=== PATIENT | male | born 1935 | race Caucasian/White ===

== ENCOUNTER 2023-10-26 14:05 | Emergency (ER) | payer MEDICARE, SELFPAY ==
[2023-10-26 14:12] VITALS: BP 141/74; PULSE 74; TEMP 37; O2SAT 95; BMI 32.8
--- NOTE | 2023-10-26 14:21 | US_ITS ---
The [address] [address] Patient Name: RK HILL MRN: [id number] date: 1935 Sex: M Assigned Patient Location: ED.MAIN Current Patient Location: ER Accession/Order Number: [id number] Exam Date: 10/26/2023 15:20 Report Date: 10/26/2023 16:17 At the request of: KAYKAY REDD Procedure: US right upper quadrant EXAM: US right upper quadrant HISTORY: RUQpain COMPARISON: None. TECHNIQUE: Grayscale, color and Doppler FINDINGS: The liver is prominent in size measuring 20.8 cm. Normal liver contour. Diffuse increase in hepatic echotexture. Hepatopedal flow in the main portal vein with a velocity 44 cm/s. The gallbladder is normal in size. The gallbladder wall measures 2.7 mm, normal. Extensive echogenic material within the gallbladder lumen with acoustic shadowing likely representing a combination of cholelithiasis and gallbladder sludge. The common bile duct measures 3.6 mm, normal. Negative sonographic Gutierrez sign The pancreas is poorly visualized due to bowel gas The right kidney measures 11.5 cm in length. The cortex measures 2.4 mm. No solid mass or hydronephrosis US/US right upper quadrant IMPRESSION: Echogenic liver suggesting hepatic steatosis Extensive cholelithiasis and gallbladder sludge without evidence of acute cholecystitis. Electronically authenticated by: ISAC BERMAN Date: 10/26/2023 16:17
--- NOTE | 2023-10-26 14:22 | XR_ITS ---
The [address] [address] Patient Name: RK HILL MRN: [id number] date: 1935 Sex: M Assigned Patient Location: ER Current Patient Location: ER Accession/Order Number: [id number] Exam Date: 10/26/2023 14:57 Report Date: 10/26/2023 15:12 At the request of: KAYKAY REDD Procedure: XR chest 2V EXAMINATION: XR chest 2V HISTORY: R lower rib pain COMPARISON: 09/15/2012 TECHNIQUE: PA and lateral FINDINGS: LUNGS: No significant pulmonary parenchymal abnormalities. VASCULATURE: No increased pulmonary vasculature. PLEURA: No pneumothorax, effusion, or pleural thickening. CARDIAC: No cardiomegaly or cardiac silhouette abnormality. MEDIASTINUM: No visible mass or adenopathy. BONES: Mild degenerative disc disease and spondylosis without visible acute abnormalities. Degenerative spondylosis OTHER: Negative. XR/XR chest 2V IMPRESSION: No acute pulmonary process Electronically authenticated by: ISAC BERMAN Date: 10/26/2023 15:12
--- NOTE | 2023-10-26 14:23 | ECG_ITS ---
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
--- NOTE | 2023-10-26 14:26 | ED.ABDPAIN1 ---
HPI - Abdominal Pain General Chief Complaint: Abdominal Pain Stated Complaint: RIB PAIN Time Seen by Provider: 10/26/23 14:07 Source: patient Mode of arrival: walk-in Limitations: no limitations History of Present Illness HPI narrative: Patient presents ED complaining of right upper quadrant abdominal pain and right lower rib pain. He said it started kind of suddenly yesterday after eating some fruit. He thinks he has gallstones but they have never been a problem but he is not exactly sure. He does still have his gallbladder. He has an extensive heart history and history of aortic aneurysm repair. He denies chest pain but is unsure if it is the ribs hurting him on the right lower ribs or the right upper quadrant abdominal area hurting him. He does not remember doing anything strenuous like lifting twisting or pulling anything. He denies any trauma to the area. No shortness of breath no skin rash no other complaints Related Data Home Medications ?Medication ?Instructions ?Recorded ?Confirmed aspirin 81 mg chewable tablet 81 mg PO DAILY 10/26/23 10/26/23 atorvastatin 20 mg tablet 20 mg PO DAILY 10/26/23 10/26/23 metoprolol succinate 25 mg 25 mg PO Q24H 10/26/23 10/26/23 tablet,extended release 24 hr tamsulosin 0.4 mg capsule 0.4 mg PO Q24H 10/26/23 10/26/23 Allergies Allergy/AdvReac Type Severity Reaction Status Date / Time meperidine [From Demerol] Allergy Severe Verified 10/26/23 14:12 Review of Systems ROS Status of ROS 10 or more systems reviewed and unremarkable except as noted in history and below Exam Narrative Exam Narrative: Time Seen: [] Vital Signs: [Per nurse's notes.] General: [Alert] Skin: [Warm, dry, no rash.] Head: [Normocephalic, atraumatic.] Neck: [Supple, trachea midline.] Eye: [Pupils are equal, round and reactive to light, extraocular movements are intact, normal conjunctiva.] Ears, nose, mouth and throat: oral mucosa moist. Cardiovascular: [Regular rate and rhythm, no murmur.] Respiratory: [Lungs are clear to auscultation, respirations are non-labored, breath sounds are equal.] Chest wall: [Mild right lower ribtenderness, no deformity.]No rash Gastrointestinal: [Soft, Mild right upper quadrant tenderness, non distended, normal bowel sounds.] MSK: 5 out of 5 muscle strength x 4 extremities no calf pain or edema Lymphatics: [No lymphadenopathy.] Psychiatric: [Cooperative, appropriate mood & affect.] Neurological: [Alert and oriented to person, place, time, and situation, no focal neurological deficit observed.] Constitutional Vital Signs, click to edit/add: Last Vital Signs Temp 98.6 F 10/26/23 14:12 Pulse 59 L 10/26/23 16:32 Resp 18 10/26/23 16:32 BP 106/54 10/26/23 16:32 Pulse Ox 94 L 10/26/23 16:32 O2 Del Method Room Air 10/26/23 16:32 Course Vital Signs Vital signs: Vital Signs Temperature 98.6 F 10/26/23 14:12 Pulse Rate 74 10/26/23 14:12 Respiratory Rate 18 10/26/23 14:12 Blood Pressure 141/74 10/26/23 14:12 Pulse Oximetry 95 10/26/23 14:12 Temperature 98.6 F 10/26/23 14:12 Pulse Rate 59 L 10/26/23 16:32 Respiratory Rate 18 10/26/23 16:32 Blood Pressure 106/54 10/26/23 16:32 Pulse Oximetry 94 L 10/26/23 16:32 Oxygen Delivery Method Room Air 10/26/23 16:32 MDM - Abdominal Pain MDM Narrative Medical decision making narrative: Patient's labs show a very slightly elevated white blood cell count and T. bili level. Ultrasound shows cholelithiasis and gallbladder sludge but no acute cholecystitis. Common bile duct is normal at 3.6 mm. I spoke to Dr. Badillo who said a conservative management would be best for this patient given his extensive cardiac history at this time before considering surgery. Follow-up with family doctor, return to ED if worsening pain vomiting fevers or any other concerns occur. Patient is comfortable care plan for home Differential Diagnosis Differential diagnosis: Likely abdominal pain and other (Cholelithiasis, cholecystitis) Medical Records Attestation: I reviewed the patient's medical records. Lab Data Attestation: I reviewed the patient's lab results. Labs: Lab Results 10/26/23 Range/Units 14:32 WBC 12.2 H (4.0-11.0) 10^3/uL RBC 4.64 L (4.70-6.10) 10^6/uL Hgb 14.0 (14.0-18.0) g/dL Hct 42.1 (42.0-54.0) % MCV 90.7 (80.0-94.0) fL MCH 30.2 (25.9-34.0) pg MCHC 33.3 (29.9-35.2) g/dL RDW 13.5 (11.0-15.0) % Plt Count 225 (150-450) 10^3/uL MPV 9.6 (9.5-13.5) fL Neut % (Auto) 80.6 H (43.0-75.0) % Lymph % (Auto) 9.6 L (20.5-60.0) % [place] % (Auto) 8.9 (1.7-12.0) % Eos % (Auto) 0.5 L (0.9-7.0) % Baso % (Auto) 0.2 (0.2-2.0) % Neut # (Auto) 9.8 H (1.4-6.5) 10^3/uL Lymph # (Auto) 1.2 (1.2-3.8) 10^3/uL [place] # (Auto) 1.1 H (0.3-0.8) 10^3/uL Eos # (Auto) 0.1 (0.0-0.7) 10^3/uL Baso # (Auto) 0.0 (0.0-0.1) 10^3/uL Abs Immat Gran (auto) 0.03 (0.00-0.03) 10^3/uL Imm/Tot Granulo (auto) 0.2 (0.0-0.5) % Sodium 131 L (136-145) mmol/L Potassium 3.9 (3.5-5.1) mmol/L Chloride 98 (98-107) mmol/L Carbon Dioxide 25.8 (21.0-32.0) mmol/L Anion Gap 11.1 BUN 10.0 (7.0-18.0) mg/dL Creatinine 0.78 (0.70-1.30) mg/dL Est GFR ( Amer) >60 (>=60) Est GFR (Non-Af Amer) >60 (>=60) BUN/Creatinine Ratio 12.8 Glucose 146 H (74-106) mg/dL Calcium 8.2 L (8.5-10.1) mg/dL Total Bilirubin 1.8 H (0.2-1.0) mg/dL AST 14 L (15-37) U/L ALT 17 (16-63) U/L Alkaline Phosphatase 101 (46-116) U/L Total Protein 6.4 (6.4-8.2) g/dL Albumin 3.3 L (3.4-5.0) g/dL Globulin 3.1 g/dL Albumin/Globulin Ratio 1.1 ECG Data Attestation: I personally reviewed and interpreted this ECG as follows: Interpretation: EKG INTERPRETATION Time: []1420 Rate: []64 Rhythm: _ []Normal sinus rhythm ST segments: _ [] T waves: _ [] Ectopy: _ [] P wave/NM interval: _ [] QRS interval: _ [] QT interval: _ [] Comparison: _ [] Comparison EKG date: [] Performed by: [self]No acute ST elevation or depression Discharge Plan Discharge Stand Alone Forms: Portal Instructions Chief Complaint: Abdominal Pain Clinical Impression: Cholelithiases Patient Disposition: Home, Self-Care Time of Disposition Decision: 16:40 Condition: Good Mode of Transportation: Private Vehicle Prescriptions / Home Meds: No Action aspirin 81 mg tablet,chewable 81 mg PO DAILY atorvastatin 20 mg tablet 20 mg PO DAILY metoprolol succinate 25 mg tablet extended release 24 hr 25 mg PO Q24H tamsulosin 0.4 mg capsule 0.4 mg PO Q24H Print Language: Libyan Instructions: Gallstones (ED) Referrals: Physician,IN [Physician] - 1 week Felix Badillo DO [Physician] - 1 week
[2023-10-26 14:56] LABS: Basophils Percent Auto 0.2 % (0.2-2.0); Eosinophils Absolute Auto 0.1 10^3/uL (0.0-0.7); Eosinophils Percent Auto 0.5 % (0.9-7.0); Hematocrit 42.1 % (42.0-54.0); Immature Granulocytes Abs Auto 0.03 10^3/uL (0.00-0.03); Immature Granulocytes Pct Auto 0.2 % (0.0-0.5); Lymphocytes Absolute Auto 1.2 10^3/uL (1.2-3.8); Lymphocytes Percent Auto 9.6 % (20.5-60.0); Mean Corpuscular HGB Conc 33.3 g/dL (29.9-35.2); Mean Corpuscular Hemoglobin 30.2 pg (25.9-34.0); Mean Corpuscular Volume 90.7 fL (80.0-94.0); Mean Platelet Volume 9.6 fL (9.5-13.5); Monocytes Absolute Auto 1.1 10^3/uL (0.3-0.8); Monocytes Percent Auto 8.9 % (1.7-12.0); Neutrophils Absolute Auto 9.8 10^3/uL (1.4-6.5); Neutrophils Percent Auto 80.6 % (43.0-75.0); Platelet Count 225 10^3/uL (150-450); Red Blood Count 4.64 10^6/uL (4.70-6.10); Red Cell Distribution Width 13.5 % (11.0-15.0); White Blood Count 12.2 10^3/uL (4.0-11.0)
[2023-10-26 15:20] LABS: Alanine Aminotransferase 17 U/L (16-63); Albumin Globulin Ratio 1.1; Albumin Level 3.3 g/dL (3.4-5.0); Alkaline Phosphatase 101 U/L (46-116); Anion Gap 11.1; Aspartate Amino Transferase 14 U/L (15-37); BUN Creatinine Ratio 12.8; Bilirubin Total 1.8 mg/dL (0.2-1.0); Calcium 8.2 mg/dL (8.5-10.1); Carbon Dioxide 25.8 mmol/L (21.0-32.0); Chloride 98 mmol/L (98-107); Estimated GFR (African America >60 (>=60); Estimated GFR (Non-African Ame >60 (>=60); Globulin 3.1 g/dL; Glucose 146 mg/dL (74-106); Potassium 3.9 mmol/L (3.5-5.1); Sodium 131 mmol/L (136-145); Total Protein 6.4 g/dL (6.4-8.2)
[2023-10-26 16:32] VITALS: BP 106/54; PULSE 59; O2SAT 94
== END 2023-10-26 16:55 | disposition home or self-care (01) ==
PROVIDERS: Emergency Provider Emergency Medicine; Family Provider Internal Medicine; PCP Internal Medicine
DX: K80.20 Calculus of gallbladder without cholecystitis without obstruction (principal)
CPT/HCPCS: 36415; 71046; 76705; 80053; 85025; 93005; 99285

== ENCOUNTER 2023-11-08 09:23 | Emergency (ER) | payer MEDICARE, SELFPAY ==
[2023-11-08 09:27] VITALS: BP 101/55; PULSE 82; TEMP 36.7; O2SAT 96; BMI 32.6
[2023-11-08 11:17] LABS: Bilirubin Urine NEGATIVE (NEGATIVE); Blood Urine LARGE (NEGATIVE); Glucose Urine UA NEGATIVE (NEGATIVE); Ketones Urine NEGATIVE (NEGATIVE); Leukocyte Esterase Urine NEGATIVE (NEGATIVE); Nitrite Urine NEGATIVE (NEGATIVE); Protein Urine 30 mg/dL (NEG/TRACE); Specific Gravity Urine >=1.030 (1.005-1.025)
[2023-11-08 11:27] LABS: Clarity Urine CLOUDY (CLEAR)
[2023-11-08 11:28] LABS: Color Urine BROWN (YELLOW)
[2023-11-08 11:29] LABS: Bacteria Urine NONE SEEN #/HPF (NONE SEEN); Mucus Urine NONE SEEN (NONE SEEN); RBC Urine >100 #/HPF (0-2); Squamous Epithelial Cell Urine RARE #/LPF (NONE/RARE); WBC Urine NONE SEEN #/HPF (NONE SEEN)
--- NOTE | 2023-11-08 12:13 | CT_ITS ---
The [address] [address] Patient Name: RK HILL MRN: [id number] date: 1935 Sex: M Assigned Patient Location: ER Current Patient Location: ER Accession/Order Number: [id number] Exam Date: 11/08/2023 13:34 Report Date: 11/08/2023 14:07 At the request of: HALEIGH RICO Procedure: CT abdomen pelvis w con EXAM: CT scan of the abdomen and pelvis using 98 mL of IV iodinated contrast. Dose reduction technique used: Automated exposure control and/or adjustment of the mA and/or kV according to patient size and/or use of iterative reconstruction technique. REASON FOR EXAM: Hematuria COMPARISON: None FINDINGS: Cholelithiasis. Gallbladder wall thickening. Mild fat stranding along the gallbladder wall. Small left renal cyst. Prominent enlargement of the prostate. Small hepatic cysts. Small bilateral renal hernias, the right is fat-containing and the left contains a short segment of the proximal sigmoid colon without evidence of obstruction. Abdominal aortic endograft. Excluded aortic aneurysm measures up to 3.1 cm. 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 No definite endoleak evident. Colonic diverticulosis. No renal collecting system filling defects. No definite ureteral filling defects. Normal appendix. No free fluid in the abdomen or pelvis. No free intraperitoneal air. No dilated or thickened loops of small bowel or colon. No hydronephrosis or obstructing renal or ureteral calculi. Liver, pancreas, spleen, bilateral kidneys, and bilateral adrenal glands are otherwise unremarkable. No lymphadenopathy in the abdomen or pelvis. Remainder unremarkable. CT/CT abdomen pelvis w con IMPRESSION: 1. Findings concerning for acute cholecystitis, correlate clinically. 2. Prominent enlargement of the prostate. 3. Left inguinal hernia containing nonobstructed sigmoid colon. 4. 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 Electronically authenticated by: AUGUSTUS SALDAÑA Date: 11/08/2023 14:07
[2023-11-08 12:48] LABS: Basophils Percent Auto 0.5 % (0.2-2.0); Eosinophils Absolute Auto 0.2 10^3/uL (0.0-0.7); Eosinophils Percent Auto 2.1 % (0.9-7.0); Hematocrit 44.4 % (42.0-54.0); Hemoglobin 14.7 g/dL (14.0-18.0); Immature Granulocytes Abs Auto 0.02 10^3/uL (0.00-0.03); Immature Granulocytes Pct Auto 0.2 % (0.0-0.5); Lymphocytes Absolute Auto 1.8 10^3/uL (1.2-3.8); Lymphocytes Percent Auto 20.2 % (20.5-60.0); Mean Corpuscular HGB Conc 33.1 g/dL (29.9-35.2); Mean Corpuscular Hemoglobin 29.9 pg (25.9-34.0); Mean Corpuscular Volume 90.2 fL (80.0-94.0); Mean Platelet Volume 9.3 fL (9.5-13.5); Monocytes Absolute Auto 0.6 10^3/uL (0.3-0.8); Monocytes Percent Auto 7.1 % (1.7-12.0); Neutrophils Absolute Auto 6.2 10^3/uL (1.4-6.5); Neutrophils Percent Auto 69.9 % (43.0-75.0); Platelet Count 301 10^3/uL (150-450); Red Blood Count 4.92 10^6/uL (4.70-6.10); Red Cell Distribution Width 13.2 % (11.0-15.0); White Blood Count 8.9 10^3/uL (4.0-11.0)
[2023-11-08] MEDS: 0.9 % SODIUM CHLORIDE 1,000 ML 1000 ML IV (12:53)
[2023-11-08 13:16] LABS: Alanine Aminotransferase 23 U/L (16-63); Albumin Globulin Ratio 0.9; Albumin Level 3.3 g/dL (3.4-5.0); Alkaline Phosphatase 113 U/L (46-116); Anion Gap 12.9; Aspartate Amino Transferase 16 U/L (15-37); Calcium 8.8 mg/dL (8.5-10.1); Carbon Dioxide 25.1 mmol/L (21.0-32.0); Chloride 101 mmol/L (98-107); Estimated GFR (African America >60 (>=60); Estimated GFR (Non-African Ame >60 (>=60); Globulin 3.6 g/dL; Glucose 100 mg/dL (74-106); Sodium 135 mmol/L (136-145); Total Protein 6.9 g/dL (6.4-8.2)
--- NOTE | 2023-11-08 15:27 | ED_ITS ---
HPI HPI - General Adult General Chief complaint: Urogenital-Male Stated complaint: DARK COLORED URINE Time Seen by Provider: 11/08/23 09:41 Source: patient Mode of arrival: walk-in Limitations: no limitations History of Present Illness HPI narrative: Patient is a 88-year-old male who is presenting to the ER today secondary to dark urine. Patient was in the ER Recently, patient was noted to have gallstones.Patient was told to call and follow-up with Dr. Badillo, Surgery, for evaluation and possible outpatient removal of his gallbladder.Patient today has no fever, chills, nausea, vomiting.Patient Has no chest pain or shortness of breath. No abdominal pain nausea or vomiting. Patient has enlarged prostate. Patient's had several abdominal aneurysm repairs. Son is at bedside.Patient is returning to the ER because he was reading his discharge papers and noticed that his urine is darker and on his discharge papers aside come back to the ER If concerns about urine. All systems are negative except as noted/marked. All systems reviewed and otherwise negative. Nurses note and vital signs reviewed and patient is not hypoxic. General: The patient appears well and in no apparent distress. Patient is resting comfortably on cart. Patient is not toxic, lethargic, or listless Skin: Warm, dry, no pallor noted. There is no rash noted. No petechiae, purpura. Head: Normocephalic, atraumatic Eye: Normal conjunctiva, no drainage, EOMI. PERRL Ears, Nose, Mouth, and Throat: oral mucosa is moist. Nares patent. Mouth without vesicles. Cardiovascular: Regular Rate and Rhythm, no murmur, gallop, rub Respiratory: Patient is in no distress, no accessory muscle use, lungs are clear to auscultation, no wheezing, rales or rhonchi Back: non-tender, no CVA tenderness bilaterally to percussion. No CT LS midline pain GI: Obese, no pulsatile mass, no midepigastric, or right upper quadrantTenderness to palpation. Otherwise no tenderness to palpation, no masses appreciated. No rebound, guarding, or rigidity noted. No distention Musculoskeletal: Patient has full range of motion of all of the extremities, no motor, sensory, or focal neurological deficits Neurological: A&O x4, normal speech Psychiatric: Cooperative Related Data Home Medications ?Medication ?Instructions ?Recorded ?Confirmed aspirin 81 mg chewable tablet 81 mg PO DAILY 10/26/23 10/26/23 atorvastatin 20 mg tablet 20 mg PO DAILY 10/26/23 10/26/23 metoprolol succinate 25 mg 25 mg PO Q24H 10/26/23 10/26/23 tablet,extended release 24 hr tamsulosin 0.4 mg capsule 0.4 mg PO Q24H 10/26/23 10/26/23 Allergies Allergy/AdvReac Type Severity Reaction Status Date / Time meperidine [From Demerol] Allergy Severe Verified 10/26/23 14:12 Opioid HPI Opioid Management Most Recent Opioid Data: No Data to Display Exam Constitutional Vital Signs, click to edit/add: Last Vital Signs Temp 98.1 F 11/08/23 09:27 Pulse 82 11/08/23 09:27 Resp 18 11/08/23 09:27 BP 101/55 11/08/23 09:27 Pulse Ox 96 11/08/23 09:27 O2 Del Method Room Air 11/08/23 09:27 Course Vital Signs Vital signs: Vital Signs Temperature 98.1 F 11/08/23 09:27 Pulse Rate 82 11/08/23 09:27 Respiratory Rate 18 11/08/23 09:27 Blood Pressure 101/55 11/08/23 09:27 Pulse Oximetry 96 11/08/23 09:27 Oxygen Delivery Method Room Air 11/08/23 09:27 Temperature 98.1 F 11/08/23 09:27 Pulse Rate 82 11/08/23 09:27 Respiratory Rate 18 11/08/23 09:27 Blood Pressure 101/55 11/08/23 09:27 Pulse Oximetry 96 11/08/23 09:27 Oxygen Delivery Method Room Air 11/08/23 09:27 Medical Decision Making MDM Narrative Medical decision making narrative: It took patient over an hour To produce a urine sample. Patient's urine was darker brownish coloration. No obvious blood or clots noted. Patient's UA with micro showed blood and red blood cells. This patient has no symptoms at all today in the ER, hemodynamically stable.Secondary to painless hematuria, patient had IV, lab work, and a CT of the abdomen pelvis performed. Patient has noted cholelithiasis, patient has enlarged prostate that he knows of.Education was done on patient's left inguinal hernia with a small segment of sigmoid colon.There does not appear to be any type of incarceration or strangulation on CT scan and I repeated physical exam looking at his left inguinal area and he has no pain or bulging to that area. He has no pain to his scrotum. No bulging in the scrotum. No pain to his testicles. Education was done and following up with Dr. Badillo For possible gallbladder removal if indicated. Patient tells his son that he is afraid to eat after 4:30 PM every night because you have had pain to midepigastric and right upper quadrant Patient also understands a follow-up with Dr. Seymour for painless hematuria. Patient is aware of the possibility of bladder cancer, but no cancer is seen on his CT today. Patient is send happy with care, no questions at discharge. Patient has been refusing to follow-up with Dr. Badillo. Son knows that he needs to go to see Dr. Badillo, patient admittedly has been ignoring it.Patient states that he will go see Dr. Seymour.Patient was given the multiple reasons why it is so important to see Dr. Badillo For evaluation of gallbladder study does not have pain every day after 4:30 PM when he eats or drinks. Lab Data Labs: Lab Results 11/08/23 11/08/23 Range/Units 10:34 12:35 WBC 8.9 (4.0-11.0) 10^3/uL RBC 4.92 (4.70-6.10) 10^6/uL Hgb 14.7 (14.0-18.0) g/dL Hct 44.4 (42.0-54.0) % MCV 90.2 (80.0-94.0) fL MCH 29.9 (25.9-34.0) pg MCHC 33.1 (29.9-35.2) g/dL RDW 13.2 (11.0-15.0) % Plt Count 301 (150-450) 10^3/uL MPV 9.3 L (9.5-13.5) fL Neut % (Auto) 69.9 (43.0-75.0) % Lymph % (Auto) 20.2 L (20.5-60.0) % [place] % (Auto) 7.1 (1.7-12.0) % Eos % (Auto) 2.1 (0.9-7.0) % Baso % (Auto) 0.5 (0.2-2.0) % Neut # (Auto) 6.2 (1.4-6.5) 10^3/uL Lymph # (Auto) 1.8 (1.2-3.8) 10^3/uL [place] # (Auto) 0.6 (0.3-0.8) 10^3/uL Eos # (Auto) 0.2 (0.0-0.7) 10^3/uL Baso # (Auto) 0.0 (0.0-0.1) 10^3/uL Abs Immat Gran (auto) 0.02 (0.00-0.03) 10^3/uL Imm/Tot Granulo (auto) 0.2 (0.0-0.5) % Sodium 135 L (136-145) mmol/L Potassium 4.0 (3.5-5.1) mmol/L Chloride 101 (98-107) mmol/L Carbon Dioxide 25.1 (21.0-32.0) mmol/L Anion Gap 12.9 BUN 10.0 (7.0-18.0) mg/dL Creatinine 0.83 (0.70-1.30) mg/dL Est GFR ( Amer) >60 (>=60) Est GFR (Non-Af Amer) >60 (>=60) BUN/Creatinine Ratio 12.0 Glucose 100 (74-106) mg/dL Calcium 8.8 (8.5-10.1) mg/dL Total Bilirubin 1.0 (0.2-1.0) mg/dL AST 16 (15-37) U/L ALT 23 (16-63) U/L Alkaline Phosphatase 113 (46-116) U/L Total Protein 6.9 (6.4-8.2) g/dL Albumin 3.3 L (3.4-5.0) g/dL Globulin 3.6 g/dL Albumin/Globulin Ratio 0.9 Urine Color Brown A (YELLOW) Urine Clarity Cloudy A (CLEAR) Urine pH 6.0 (5.0-9.0) Ur Specific [place] >=1.030 A (1.005-1.025) Urine Protein 30 A (NEG/TRACE) mg/dL Urine Glucose (UA) Negative (NEGATIVE) mg/dL Urine Ketones Negative (NEGATIVE) mg/dL Urine Occult Blood Large A (NEGATIVE) Urine Nitrite Negative (NEGATIVE) Urine Bilirubin Negative (NEGATIVE) Urine Urobilinogen 1.0 (0.2-1.0) EU/dL Ur Leukocyte Esterase Negative (NEGATIVE) Urine RBC >100 A (0-2) #/HPF Urine WBC None seen (NONE SEEN) #/HPF Ur Squamous Epith Cells Rare (NONE/RARE) #/LPF Urine Bacteria None seen (NONE SEEN) #/HPF Urine Mucus None seen (NONE SEEN) Discharge Plan Discharge Stand Alone Forms: Portal Instructions Chief Complaint: Urogenital-Male Clinical Impression: Hematuria, Cholelithiasis Patient Disposition: Home, Self-Care Time of Disposition Decision: 15:23 Condition: Fair Prescriptions / Home Meds: No Action aspirin 81 mg tablet,chewable 81 mg PO DAILY atorvastatin 20 mg tablet 20 mg PO DAILY metoprolol succinate 25 mg tablet extended release 24 hr 25 mg PO Q24H tamsulosin 0.4 mg capsule 0.4 mg PO Q24H Print Language: Gib[place] Instructions: Biliary Colic (ED), Gallstones (ED), Hematuria (ED) Additional Instructions: You must follow-up with the surgeon, Dr. Badillo. Surgeon. Follow-up for gallbladder symptoms that you are occurring when you are eating and drinking. You must follow-up with Dr. Seymour, urologist. Follow-up with Dr. Seymour due to hematuria with unknown source. A copy of your CAT scan report has been given to Continue to increase fluids. [place] diet, please refer to discharge instructions. Return to the ER if you are having intractable pain, nausea, vomiting, or any other acute complaints Referrals: Ben Seymour MD [Physician] - 1 week NATHAN CLAIRE [Primary Care Provider] - 1 week Felix Badillo DO [Physician] - 1 week Discharge Date/Time: 11/08/23 15:32
== END 2023-11-08 15:32 | disposition home or self-care (01) ==
PROVIDERS: Emergency Provider Emergency Medicine; Family Provider Internal Medicine; PCP Internal Medicine
DX: R31.9 Hematuria, unspecified (principal); K80.20 Calculus of gallbladder without cholecystitis without obstruction; N40.0 Benign prostatic hyperplasia without lower urinary tract symptoms; K40.90 Unilateral inguinal hernia, without obstruction or gangrene, not specified as recurrent
CPT/HCPCS: 36415; 74177; 80053; 81001; 85025; 99285; Q9967